=== PATIENT | male | born 1985 | race Caucasian/White ===

== ENCOUNTER → 2018-01-14 07:19 | Outpatient (CLI) | payer BC ==
[2015-01-31 06:28] VITALS: BMI 42.0
[~2018-01-14 07:19] MED LIST: ATIVAN1 MG PO; WELLBUTRIN SR150 MG PO
== END | disposition home or self-care (01) ==
LOC: D.US 07:19
DX: R22.41 Localized swelling, mass and lump, right lower limb (principal)

== ENCOUNTER 2018-03-28 14:45 | Emergency (ER) | payer BC ==
[~2018-03-28] VITALS: Ht 193 cm; Wt 172.7 kg
[2018-03-28 14:50] VITALS: Ht 193 cm; Wt 172.7 kg
[2018-03-28 15:01] LABS: BASOPHILS 0.2 % (0-2); EOSINOPHILS 1.7 % (0-7); HEMATOCRIT 43.3 % (42.0-54.0); HEMOGLOBIN 15.1 g/dL (13.5-17.5); IMMATURE GRANULOCYTES 0.2 % (0-5); LYMPHOCYTES 43.5 % (15-50); MCH 30.6 pg (26.0-34.0); MCHC 34.9 g/dL (31.0-37.0); MCV 87.7 fL (80.0-100.0); MEAN PLATELET VOLUME 9.8 fL (7.4-10.4); MONOCYTES 8.9 % (2-11); NEUTROPHILS 45.5 % (40-80); PLATELET COUNT 299 10x3/uL (130-400); RBC 4.94 10x6/uL (4.20-6.10); WBC 11.7 10x3/uL (4.8-10.8)
[2018-03-28 15:15] LABS: ALBUMIN 4.1 g/dL (3.4-5.0); ALKALINE PHOSPHATASE 87 U/L (46-116); ALT (SGPT) 27 U/L (10-68); BILIRUBIN - TOTAL 0.53 mg/dL (0.2-1.3); CALC OSMOLALITY 277 mosm/kg (275-300); CALCIUM 9.5 mg/dL (8.5-10.1); CHLORIDE - SERUM 102 mmol/L (98-107); CREATININE - SERUM 1.1 mg/dL (0.6-1.3); GLUCOSE 118 mg/dL (74-106); POTASSIUM - SERUM 3.9 mmol/L (3.5-5.1); SODIUM 138 mmol/L (136-145); UREA NITROGEN 15 mg/dL (7-18); eGFR NON AFRICAN AMERICAN 83 mL/min (90-120)
[2018-03-28 16:27] LABS: APPEARANCE CLEAR (CLEAR); COLOR YELLOW (YELLOW); SPECIFIC GRAVITY 1.025 (1.005-1.020)
[2018-03-28 16:28] LABS: BILIRUBIN NEGATIVE (NEGATIVE); GLUCOSE NEGATIVE (NEGATIVE); KETONE NEGATIVE (NEGATIVE); NITRITE NEGATIVE (NEGATIVE); PROTEIN NEGATIVE (NEGATIVE); UROBILINOGEN NORMAL (NORMAL)
[2018-03-28 16:31] LABS: UDS - AMPHET NEGATIVE QUAL (NEGATIVE); UDS - BARB NEGATIVE QUAL (NEGATIVE); UDS - BENZO NEGATIVE QUAL (NEGATIVE); UDS - COCAINE NEGATIVE QUAL (NEGATIVE); UDS - OPIATE POSITIVE QUAL (NEGATIVE); UDS - PCP NEGATIVE QUAL (NEGATIVE); UDS - THC NEGATIVE QUAL (NEGATIVE)
[2018-03-28 16:43] LABS: CREATINE KINASE 90 UL (21-232); LIPASE 78 U/L (73-393); PRO BNP 17 pg/mL (0-125)
[2018-03-28 16:49] LABS: TROPONIN-I < 0.017 ng/mL (0.000-0.060)
[2018-03-28 19:11] VITALS: BP 132/59
== END 2018-03-28 19:09 | disposition home or self-care (01) ==
LOC: D.ER 14:45
PROVIDERS: Family Medicine
DX: R55 Syncope and collapse (principal)

== ENCOUNTER 2019-05-28 17:08 | Emergency (ER) | payer BC ==
[~2019-05-28] VITALS: Ht 193 cm; Wt 162.7 kg
[2019-05-28 17:23] VITALS: Ht 193 cm; Wt 162.7 kg
[2019-05-28 17:47] LABS: BASOPHILS 0.2 % (0-2); EOSINOPHILS 2.2 % (0-7); HEMATOCRIT 45.4 % (42.0-54.0); HEMOGLOBIN 15.2 g/dL (13.5-17.5); IMMATURE GRANULOCYTES 0.2 % (0-5); LYMPHOCYTES 29.2 % (15-50); MCH 30.5 pg (26.0-34.0); MCHC 33.5 g/dL (31.0-37.0); MCV 91.2 fL (80.0-100.0); MEAN PLATELET VOLUME 9.8 fL (7.4-10.4); MONOCYTES 7.2 % (2-11); PLATELET COUNT 296 10x3/uL (130-400); RBC 4.98 10x6/uL (4.20-6.10); WBC 10.9 10x3/uL (4.8-10.8)
[2019-05-28 17:59] LABS: APTT 25.9 SECONDS (22.8-39.4); INR 1.08 (0.85-1.17); PROTIME 13.5 SECONDS (11.6-15.0)
[2019-05-28 18:00] LABS: CALC OSMOLALITY 275 mosm/kg (275-300); CALCIUM 9.2 mg/dL (8.5-10.1); CARBON DIOXIDE 27.7 mmol/L (21.0-32.0); CHLORIDE - SERUM 101 mmol/L (98-107); GLUCOSE 87 mg/dL (74-106); POTASSIUM - SERUM 4.1 mmol/L (3.5-5.1); SODIUM 138 mmol/L (136-145); UREA NITROGEN 15 mg/dL (7-18); eGFR NON AFRICAN AMERICAN > 90 mL/min (90-120)
[2019-05-28 18:05] LABS: ALBUMIN 3.9 g/dL (3.4-5.0); ALKALINE PHOSPHATASE 92 U/L (46-116); ALT (SGPT) 24 U/L (10-68); BILIRUBIN - TOTAL 0.33 mg/dL (0.2-1.3); PROTEIN - SERUM 7.8 g/dL (6.4-8.2)
[2019-05-28] MEDS ORDERED: BACLOFEN20 M1 PO (19:13)
[2019-05-28] MEDS ORDERED: VOLTAREN75 MG PO (19:13)
[2019-05-28 19:29] VITALS: BP 145/92
== END 2019-05-28 19:30 | disposition home or self-care (01) ==
LOC: D.ER 17:08
PROVIDERS: Family Medicine
DX: M79.605 Pain in left leg (principal)

== ENCOUNTER 2020-03-29 00:14 | Emergency (ER) | payer BC ==
[~2020-03-29] VITALS: Ht 193 cm; Wt 154.5 kg
[~2020-03-29 00:14] MED LIST changes: +BACLOFEN20 M1 PO; +VOLTAREN75 MG PO
[2020-03-29 00:19] VITALS: Ht 193 cm; Wt 154.5 kg
[2020-03-29 00:58] LABS: BASOPHILS 0.2 % (0-2); EOSINOPHILS 3.5 % (0-7); HEMATOCRIT 43.6 % (42.0-54.0); HEMOGLOBIN 14.4 g/dL (13.5-17.5); IMMATURE GRANULOCYTES 0.1 % (0-5); MCH 29.5 pg (26.0-34.0); MCV 89.3 fL (80.0-100.0); MEAN PLATELET VOLUME 10.4 fL (7.4-10.4); MONOCYTES 8.3 % (2-11); NEUTROPHILS 63.9 % (40-80); PLATELET COUNT 251 10x3/uL (130-400); RBC 4.88 10x6/uL (4.20-6.10); RDW 13.2 % (11.5-14.5); WBC 8.6 10x3/uL (4.8-10.8)
[2020-03-29 01:09] LABS: CALC OSMOLALITY 274 mosm/kg (275-300); CALCIUM 9.3 mg/dL (8.5-10.1); CHLORIDE - SERUM 104 mmol/L (98-107); CREATININE - SERUM 0.8 mg/dL (0.6-1.3); GLUCOSE 102 mg/dL (74-106); POTASSIUM - SERUM 3.9 mmol/L (3.5-5.1); SODIUM 137 mmol/L (136-145); UREA NITROGEN 15 mg/dL (7-18); eGFR NON AFRICAN AMERICAN > 90 mL/min (90-120)
[2020-03-29 01:19] LABS: ALBUMIN 3.5 g/dL (3.4-5.0); ALKALINE PHOSPHATASE 76 U/L (30-120); ALT (SGPT) 17 U/L (10-68); BILIRUBIN - TOTAL 0.17 mg/dL (0.2-1.3); LIPASE 55 U/L (73-393); PROTEIN - SERUM 6.8 g/dL (6.4-8.2)
[2020-03-29 01:22] LABS: C-REACTIVE PROTEIN < 0.2 mg/dL (0.0-0.9); TROPONIN-I < 0.017 ng/mL (0.000-0.060)
[2020-03-29 02:35] VITALS: BP 131/75
== END 2020-03-29 02:35 | disposition home or self-care (01) ==
LOC: D.ER 00:14
PROVIDERS: Family Medicine
DX: R07.89 Other chest pain (principal); R10.10 Upper abdominal pain, unspecified